=== PATIENT | female | born 1955 | race Caucasian/White ===

== ENCOUNTER → 2022-11-03 | Day surgery (SDC) | payer MEDICARE, OTHER ==
[2022-10-28 11:14] LABS: BASOPHILS # (AUTO) 0.1 (0.0-0.1); BASOPHILS % 0.9 % (0.0-1.0); EOSINOPHILS # (AUTO) 0.6 (0.0-0.4); EOSINOPHILS % 6.9 % (0.0-6.0); HEMATOCRIT 47.6 % (34.2-44.1); HEMOGLOBIN 16.2 g/dL (12.0-16.0); LYMPHOCYTES # (AUTO) 3.6 (1.0-3.2); LYMPHOCYTES % 41.5 % (18.0-39.1); MEAN CORPUSCULAR HEMOGLOBIN 28.6 pg (28-32); MONOCYTES # (AUTO) 0.4 (0.2-0.8); MONOCYTES % 4.7 % (4.4-11.3); NEUTROPHILS % 45.8 % (38.7-80.0); PLATELET COUNT 219 x10e3/uL (140-360); RED BLOOD COUNT 5.67 x10e6/uL (3.6-5.1); RED CELL DISTRIBUTION WIDTH 13.3 % (11.7-14.4)
[~2022-11-03] MED LIST: ALBUTEROL0.63 MG/3 NEB; ALPRAZOLAM0.5 MG PO; AMLODIPINE BESY10 MG PO; ANORO ELLIPTA1 EACH PO; ATORVASTATIN CA20 MG PO; FENTANYL CITRATE/PF 100MCG/2 ML INJ ONE; FUROSEMIDE40 MG PO; LACTATED RINGER'S 1,000 ML ONE; LEVOTHYROXINE50 MCG PO; METOPROLOL SUCC50 MG PO; MIDAZOLAM HCL 2 MG/2 ML VIAL ONE; MONTELUKAST SOD10 MG PO; OR PHACO EYE KIT ONE; PREOP PHACO EYE KIT ONE; QUETIAPINE FUMA25 MG PO; SERTRALINE HCL100 MG PO
[2022-11-03 11:40] VITALS: TEMP 97
[2022-11-03 11:55] VITALS: BP 129/88; PULSE 66; RESP 16; O2SAT 98
== END | disposition home or self-care (01) ==
LOC: OR 08:00
PROVIDERS: ATTEND Ophthalmology
DX: H25.12 Age-related nuclear cataract, left eye (principal); I10 Essential (primary) hypertension; E03.9 Hypothyroidism, unspecified; E78.5 Hyperlipidemia, unspecified; J44.9 Chronic obstructive pulmonary disease, unspecified; M06.9 Rheumatoid arthritis, unspecified; F41.9 Anxiety disorder, unspecified; Z88.4 Allergy status to anesthetic agent; Z88.2 Allergy status to sulfonamides; Z01.810 Encounter for preprocedural cardiovascular examination; Z01.812 Encounter for preprocedural laboratory examination; Z99.81 Dependence on supplemental oxygen; Z79.899 Other long term (current) drug therapy; Z68.35 Body mass index [BMI] 35.0-35.9, adult; Z87.440 Personal history of urinary (tract) infections; Z87.01 Personal history of pneumonia (recurrent); Z87.891 Personal history of nicotine dependence
CPT/HCPCS: 36415; 66984; 85025; 93005; J2250; J3010; J7121; V2788